=== PATIENT | female | born 1980 | race Caucasian/White ===

== ENCOUNTER 2024-08-28 21:03 | Inpatient (IN) | payer OTHER ==
[2024-08-28] MEDS ORDERED: morphine SULFATE 4 MG/ML VIAL ONE (22:42)
[2024-08-28] MEDS: SODIUM CHLORIDE 1,000 ML IV STA (23:19)
[2024-08-28] MEDS: morphine CARPU-JECT 4 MG/1 ML DISP.SYRIN IVPUSH ONE (23:19)
[2024-08-28 23:25] LABS: EOSINOPHIL % 0.4 % (0.7-5.8); EOSINOPHILS # 0.05 x10^3/uL (0.04-0.36); HEMATOCRIT 30.6 % (34.1-44.9); MEAN CELL VOLUME 83.4 fl (79.4-94.8); RDW 14.9 % (12.2-17.1)
[2024-08-28 23:27] LABS: ABSOLUTE IMMATURE GRANULOCYTES 0.07 x10^3/uL (0.0-0.031); BASOPHILS # 0.03 x10^3/uL (0.01-0.08); HEMOGLOBIN 9.8 g/dL (11.2-15.7); MONOCYTE # 0.74 x10^3/uL (0.24-0.86); MONOCYTE % 5.4 % (4.7-12.5)
[2024-08-28 23:47] LABS: POTASSIUM 4.1 mmol/L (3.5-5.1)
[2024-08-28 23:51] LABS: CALCIUM 9.3 mg/dL (8.5-10.1)
[2024-08-28 23:52] LABS: ALBUMIN 2.7 g/dl (3.4-5.0); BLOOD UREA NITROGEN 7.2 mg/dL (7-18)
[2024-08-28 23:55] LABS: CREATININE 0.5 mg/dL (0.55-1.3)
[2024-08-28 23:56] LABS: BILIRUBIN,TOTAL 0.4 mg/dL (0.2-1); TOT PROT 7.7 g/dl (6.4-8.2)
[2024-08-29] MEDS ORDERED: morphine SULFATE 4 MG/ML VIAL ONE (00:18)
[2024-08-29] MEDS: morphine CARPU-JECT 4 MG/1 ML DISP.SYRIN IVPUSH ONE (00:23)
[2024-08-29 00:36] LABS: EPI CELLS 16 /uL (0-25.1); HYALINE CASTS 1 /uL (0-3.1); URINE APPEARANCE CLEAR; URINE BACTERIA >9,000 /uL (0-1359); URINE BILIRUBIN NEGATIVE (NEGATIVE); URINE COLOR YELLOW; URINE GLUCOSE (UA) NEGATIVE (NEGATIVE); URINE KETONE TRACE (NEGATIVE); URINE LEUK ESTERASE 3+ (NEGATIVE); URINE NITRITE NEGATIVE (NEGATIVE); URINE PROTEIN TRACE (NEGATIVE); URINE RBC 68 /uL (0-23.9); URINE WBC 385 /uL (0-25.8)
[2024-08-29] MEDS ORDERED: HYDROmorphone HCL CARPU-JECT 2 MG/1 ML DISP.SYRIN ONE ×2 (01:12→05:24)
[2024-08-29] MEDS: HYDROmorphone HCl 2 MG/ML VIAL IVPUSH ONE (01:26)
[2024-08-29] MEDS ORDERED: ACETAMINOPHEN INJECTION 100 ML ONE (01:32)
[2024-08-29] MEDS ORDERED: PIPERACILLIN/TAZOB 4.5 GM 4.5 GM/100 ML BAG IVPB ONE (01:32)
[2024-08-29] MEDS: LACTATED RINGERS SOLUTION 1000 ML INFUS.BAG IV ONE (01:42)
[2024-08-29] MEDS: ACETAMINOPHEN 1000 MG/100 ML BAG IVPB ONE (01:42)
[2024-08-29] MEDS: PIPERACILLIN/TAZOB 4.5 GM 4.5 GM in DEXTROSE 5%-WATER 100 ML IVPB ONE (02:12)
[2024-08-29] MEDS: VANCOMYCIN HCL 1,500 MG in DEXTROSE 5%-WATER - 500 ML IVPB ONE (03:14)
[2024-08-29] MEDS: LACTATED RINGERS SOLUTION 1,000 ML/1,000 ML INFUS.BAG IV SCH (05:21)
[2024-08-29] MEDS: HYDROmorphone HCL CARPU-JECT 2 MG/1 ML DISP.SYRIN IVPB PRN (05:21)
[2024-08-29 06:21] LABS: POTASSIUM 3.9 mmol/L (3.5-5.1)
[2024-08-29 06:23] LABS: CALCIUM 8.8 mg/dL (8.5-10.1)
[2024-08-29 06:24] LABS: ALBUMIN 2.4 g/dl (3.4-5.0); MAGNESIUM 1.7 mg/dL (1.8-2.4)
[2024-08-29 06:27] LABS: CREATININE 0.5 mg/dL (0.55-1.3); PHOSPHOROUS 3.3 mg/dL (2.5-4.9)
[2024-08-29 06:29] LABS: BILIRUBIN,TOTAL 0.4 mg/dL (0.2-1); TOT PROT 6.9 g/dl (6.4-8.2)
[2024-08-29 06:36] LABS: HEMATOCRIT 29.2 % (34.1-44.9); HEMOGLOBIN 9.2 g/dL (11.2-15.7); MCHC 31.5 g/dl (32.2-35.5); MEAN CELL VOLUME 84.1 fl (79.4-94.8); MEAN PLT VOLUME 9.6 fl (9.4-12.3); PLATELET COUNT 369 x10^3/uL (182-369)
[2024-08-29] MEDS: PIPERACILLIN/TAZOB 3.375 GM 3.375 GM in DEXTROSE 5%-WATER - 50 ML IVPB SCH (09:25)
[2024-08-29] MEDS: ACETAMINOPHEN 1000 MG/100 ML BAG IVPB PRN (09:25)
[2024-08-29] MEDS ORDERED: MAGNESIUM SULFATE IN WATER 2 GM/50 ML IVPB IVPB ONE (09:47)
[2024-08-29 10:09] VITALS: BMI 28.9
[2024-08-29] MEDS ORDERED: FENTANYL CITRATE/PF 50 MCG/ML VIAL ONE (11:28)
[2024-08-29] MEDS ORDERED: MIDAZOLAM HCL 2 MG/2 ML SINGLE DOSE VIAL ONE (11:28)
[2024-08-29] MEDS: MAGNESIUM SULFATE IN WATER 2 GM/50 ML IVPB IVPB ONE (12:07)
[2024-08-29] MEDS: MIDAZOLAM HCL 2 MG/2 ML SINGLE DOSE VIAL IVPUSH ONE (12:23)
[2024-08-29] MEDS: FENTANYL CITRATE/PF 50 MCG/ML VIAL IVPUSH ONE ×2 (12:23→12:39)
[2024-08-29] MEDS: MIDAZOLAM HCL 2 MG/2 ML SINGLE DOSE VIAL IVPB ONE (12:37)
[2024-08-29] MEDS ORDERED: VANCOMYCIN/WATER 1250 MG 1,250 MG/250 ML BAG IVPB SCH ×2 (15:00)
[2024-08-29] MEDS: MAGNESIUM SULF 50% (8.12 MEQ/2 ML-1 GM VIAL) IVPB ONE (15:25)
[2024-08-29] MEDS ORDERED: KETOROLAC TROMETHAMINE 15 MG/ML VIAL IM PRN (16:31)
[2024-08-29] MEDS: ACETAMINOPHEN 1000 MG/100 ML BAG IVPB SCH (16:35)
[2024-08-29] MEDS: PIPERACILLIN/TAZOB 4.5 GM 4.5 GM/100 ML BAG IVPB SCH (17:16)
[2024-08-29] MEDS: KETOROLAC TROMETHAMINE 15 MG/ML VIAL IVPUSH ONE (18:30)
[2024-08-29] MEDS: MELATONIN 5 MG TABLETS PO ONE (23:55)
[2024-08-30] MEDS: KETOROLAC TROMETHAMINE 15 MG/ML VIAL IVPUSH PRN (04:32)
[2024-08-30] MEDS: HYDROmorphone HCL CARPU-JECT 2 MG/1 ML DISP.SYRIN IVPB PRN (08:15)
[2024-08-30 08:18] LABS: ABSOLUTE IMMATURE GRANULOCYTES 0.06 x10^3/uL (0.0-0.031); MEAN CELL VOLUME 83.9 fl (79.4-94.8); MEAN PLT VOLUME 8.5 fl (9.4-12.3)
[2024-08-30 08:20] LABS: BASOPHILS # 0.02 x10^3/uL (0.01-0.08); EOSINOPHIL % 0.4 % (0.7-5.8); EOSINOPHILS # 0.04 x10^3/uL (0.04-0.36); HEMATOCRIT 25.5 % (34.1-44.9); MCHC 31.4 g/dl (32.2-35.5); MONOCYTE # 0.46 x10^3/uL (0.24-0.86); MONOCYTE % 4.7 % (4.7-12.5); PLATELET COUNT 403 x10^3/uL (182-369); RDW 15.1 % (12.2-17.1)
[2024-08-30 08:42] LABS: POTASSIUM 3.6 mmol/L (3.5-5.1)
[2024-08-30 08:51] LABS: CALCIUM 8.9 mg/dL (8.5-10.1)
[2024-08-30 08:52] LABS: BLOOD UREA NITROGEN 7.6 mg/dL (7-18); MAGNESIUM 2.1 mg/dL (1.8-2.4)
[2024-08-30 08:55] LABS: CREATININE 0.4 mg/dL (0.55-1.3); PHOSPHOROUS 3.7 mg/dL (2.5-4.9)
[2024-08-30] MEDS: PIPERACILLIN/TAZOB 3.375 GM 3.375 GM in DEXTROSE 5%-WATER - 50 ML IVPB SCH (09:46)
[2024-08-30] MEDS: NAPROXEN 250 MG TABLET PO SCH (10:55)
[2024-08-30] MEDS: ACETAMINOPHEN 1000 MG/100 ML BAG IVPB SCH (11:47)
[2024-08-30] MEDS: POLYETHYLENE GLYCOL (HEALTHYLAX) 3350 17 GM PACKET PO SCH (13:57)
[2024-08-30] MEDS: ONDANSETRON 4 MG/2 ML VIAL IVPUSH PRN (14:51)
[2024-08-31] MEDS: PANTOPRAZOLE SODIUM 40 MG VIAL IVPUSH ONE (04:58)
[2024-08-31] MEDS ORDERED: ACETAMINOPHEN 325 MG TABLET (FP) PO PRN (10:14)
[2024-08-31] MEDS: oxyCODONE HCL 5 MG TABLET PO PRN (12:37)
[2024-08-31] MEDS: ACETAMINOPHEN 325 MG TABLET (FP) PO PRN (17:11)
[2024-09-01] MEDS: FUROSEMIDE 40 MG/4 ML INJECTABLE VIAL IVPUSH ONE (07:18)
[2024-09-01 08:30] LABS: HEMATOCRIT 29.1 % (34.1-44.9); HEMOGLOBIN 9.1 g/dL (11.2-15.7); MCHC 31.3 g/dl (32.2-35.5); MEAN CELL VOLUME 84.3 fl (79.4-94.8); MEAN PLT VOLUME 8.4 fl (9.4-12.3); PLATELET COUNT 511 x10^3/uL (182-369); RDW 15.2 % (12.2-17.1)
[2024-09-01 09:02] LABS: POTASSIUM 3.9 mmol/L (3.5-5.1)
[2024-09-01 09:21] LABS: ALBUMIN 2.7 g/dl (3.4-5.0); BLOOD UREA NITROGEN 9.2 mg/dL (7-18); CALCIUM 9.5 mg/dL (8.5-10.1); PHOSPHOROUS 3.7 mg/dL (2.5-4.9)
[2024-09-01 09:22] LABS: BILIRUBIN,TOTAL 0.4 mg/dL (0.2-1); MAGNESIUM 1.8 mg/dL (1.8-2.4)
[2024-09-01 09:23] LABS: TOT PROT 7.8 g/dl (6.4-8.2)
[2024-09-01 09:24] LABS: CREATININE 0.5 mg/dL (0.55-1.3)
[2024-09-01] MEDS ORDERED: FUROSEMIDE 40 MG/4 ML INJECTABLE VIAL IVPUSH SCH (14:00)
[2024-09-02 02:20] VITALS: RESP 18
[2024-09-02 09:38] LABS: ABSOLUTE IMMATURE GRANULOCYTES 0.14 x10^3/uL (0.0-0.031); BASOPHILS # 0.03 x10^3/uL (0.01-0.08); EOSINOPHIL % 0.5 % (0.7-5.8); EOSINOPHILS # 0.05 x10^3/uL (0.04-0.36); HEMATOCRIT 28.2 % (34.1-44.9); MCHC 31.9 g/dl (32.2-35.5); MEAN CELL VOLUME 83.7 fl (79.4-94.8); MEAN PLT VOLUME 8.3 fl (9.4-12.3); MONOCYTE # 0.56 x10^3/uL (0.24-0.86); PLATELET COUNT 512 x10^3/uL (182-369); RDW 14.9 % (12.2-17.1)
[2024-09-02 10:00] LABS: POTASSIUM 4.2 mmol/L (3.5-5.1)
[2024-09-02 10:10] LABS: ALBUMIN 2.6 g/dl (3.4-5.0); BLOOD UREA NITROGEN 8.4 mg/dL (7-18); CALCIUM 9.4 mg/dL (8.5-10.1); MAGNESIUM 1.8 mg/dL (1.8-2.4)
[2024-09-02 10:12] LABS: BILIRUBIN,TOTAL 0.4 mg/dL (0.2-1); CREATININE 0.5 mg/dL (0.55-1.3); PHOSPHOROUS 3.6 mg/dL (2.5-4.9)
[2024-09-02 10:14] LABS: TOT PROT 7.2 g/dl (6.4-8.2)
[2024-09-02] MEDS: HEPARIN NA (PORCINE) 5,000 UNITS/ML 1ML VIAL SQ SCH (14:58)
[2024-09-02 18:00] VITALS: BP 124/94; PULSE 85; TEMP 98.6
== END 2024-09-02 18:51 | disposition home or self-care (01) | DRG 711 ==
LOC: JER 21:03 → JERBED 08-29 03:31 → J6S 08-29 06:04
PROVIDERS: ADMIT Internal Medicine; ATTEND Internal Medicine
PROC: 0W9H30Z Drainage of Retroperitoneum with Drainage Device, Percutaneous Approach (ICD-10-PCS; principal; 2024-08-29)
DX: K68.11 Postprocedural retroperitoneal abscess (principal); N39.0 Urinary tract infection, site not specified; D18.03 Hemangioma of intra-abdominal structures; Y83.9 Surgical procedure, unspecified as the cause of abnormal reaction of the patient, or of later complication, without mention of misadventure at the time of the procedure
CPT/HCPCS: 0241U-QW; 36415; 49407; 71275-TC; 74177-TC; 80048; 80053; 81003; 83605; 83690; 83735; 84100; 84703; 85025; 85027; 86140; 86850; 86900; 86901; 87040; 87070; 87075; 87086; 87102; 87116; 87186; 87205; 87206; 87210; 93005; 93010; 93971-TC; 99285-25; G0480; J0131; J1644; Q9967